=== PATIENT | male | born 1955 | race Asian ===

== ENCOUNTER 2019-03-01 13:54 | Outpatient (CLI) | payer MEDICAID ==
[2019-03-01 14:20] VITALS: BP 133/70
--- NOTE | 2019-03-01 14:50 | General Progress Note ---
Assessment/Plan Assessment/Plan: Assessment/Plan Problem List: (1) Choledocholithiasis ICD Codes: K80.50 - Calculus of bile duct without cholangitis or cholecystitis without obstruction SNOMED: 845225171 Assessment/Plan: patient to see surgeon for cholecystectomy plan repeat ERCP and stent removal post abobe Subjective ROS Limited/Unobtainable: Yes Objective General Appearance: alert EENT: normal ENT inspection Neck: supple Cardiovascular: normal rate Respiratory/Chest: lungs clear Abdomen: normal bowel sounds, non tender, soft Extremities: non-tender Prabhjot Kwong MD Mar 01, 2019 14:50
[2019-03-02] MEDS ORDERED: URSODIOL300 MG ORAL (08:20)
== END 2019-03-01 15:54 | disposition home or self-care (01) ==
LOC: PAN 13:54
DX: K80.50 Calculus of bile duct without cholangitis or cholecystitis without obstruction (principal)
CPT/HCPCS: 99212

== ENCOUNTER 2020-01-11 08:58 | Outpatient (CLI) | payer MEDICAID ==
[~2020-01-11] VITALS: Ht 170.2 cm; Wt 77.1 kg
[~2020-01-11 08:58] MED LIST: URSODIOL300 MG ORAL
[2020-01-11] MEDS ORDERED: ATORVASTATIN CA10 MG ORAL (09:16)
[2020-01-11] MEDS ORDERED: SYNTHROID88 MCG ORAL (09:16)
[2020-01-11] MEDS ORDERED: LOSARTAN POTASS50 MG ORAL (09:16)
[2020-01-11] MEDS ORDERED: GLUCOPHAGE XR500 MG ORAL (09:16)
[2020-01-11] MEDS ORDERED: HYDROCHLOROTH12.5 MG ORAL (09:16)
[2020-01-11 09:17] VITALS: BP 124/88
--- NOTE | 2020-01-11 10:04 | General Progress Note ---
Subjective ROS Limited/Unobtainable: Yes Allergies: Coded Allergies: PENICILLINS (Verified Allergy, Unknown, 01/11/20) Objective Last 24 Hour Vital Signs Date Time Temp Pulse Resp B/P (MAP) Pulse Ox O2 Delivery O2 Flow Rate FiO2 01/11/20 09:17 97.6 76 16 124/88 98 General Appearance: alert EENT: normal ENT inspection Neck: supple Cardiovascular: normal rate Respiratory/Chest: lungs clear Abdomen: normal bowel sounds, non tender, soft Extremities: non-tender Assessment/Plan Problem List: (1) Cholelithiasis ICD Codes: K80.20 - Calculus of gallbladder without cholecystitis without obstruction SNOMED: 105655607 (2) DM (diabetes mellitus) ICD Codes: E11.9 - Type 2 diabetes mellitus without complications SNOMED: 78785260 (3) Choledocholithiasis ICD Codes: K80.50 - Calculus of bile duct without cholangitis or cholecystitis without obstruction SNOMED: [id number] Assessment/Plan: plan ERCP and stone removal patient has been seen by a surgeon and waiting for ERCP prior to cholecystectomy Prabhjot Kwogn MD Jan 11, 2020 10:04
== END 2020-01-11 10:58 | disposition home or self-care (01) ==
LOC: PAN 08:58
DX: K80.20 Calculus of gallbladder without cholecystitis without obstruction (principal); E11.9 Type 2 diabetes mellitus without complications; K80.50 Calculus of bile duct without cholangitis or cholecystitis without obstruction
CPT/HCPCS: 99212

== ENCOUNTER 2020-02-10 13:52 | Outpatient (CLI) | payer MEDICAID ==
[~2020-02-10 13:52] MED LIST changes: +ATORVASTATIN CA10 MG ORAL; +GLUCOPHAGE XR500 MG ORAL; +HYDROCHLOROTH12.5 MG ORAL; +LOSARTAN POTASS50 MG ORAL; +SYNTHROID88 MCG ORAL
--- NOTE | 2020-02-10 15:43 | General Progress Note ---
Subjective ROS Limited/Unobtainable: Yes Allergies: Coded Allergies: PENICILLINS (Verified Allergy, Unknown, 01/11/20) Objective General Appearance: alert EENT: normal ENT inspection Neck: supple Cardiovascular: normal rate Respiratory/Chest: lungs clear Abdomen: normal bowel sounds, non tender, soft Extremities: non-tender Assessment/Plan Assessment/Plan: s/p ERCP and stent needs repeat ERCP post andre Prabhjot Kwong MD Feb 10, 2020 15:43
== END 2020-02-10 15:52 | disposition home or self-care (01) ==
LOC: PAN 13:52
DX: Z98.890 Other specified postprocedural states (principal); Z88.0 Allergy status to penicillin
CPT/HCPCS: 99212